=== PATIENT | female | born 1985 | race Caucasian/White ===

== ENCOUNTER 2017-01-28 01:56 | Emergency (ER) | payer BC, OTHER ==
[~2017-01-28] VITALS: Ht 154.9 cm; Wt 63.5 kg
[2017-01-28 02:08] VITALS: BP_SYST 94
--- NOTE | 2017-01-28 02:18 | NUR ---
Placed in room 03 . To gown for exam. Side rails up. Report given to YEN Lancaster.
--- NOTE | 2017-01-28 02:20 | NUR ---
Pt stated that she cut her hand on a broken beer bottle when cleaning. Small 4 cm on R posterior palm. Bleeding controlled. Will continue to monitor.
--- NOTE | 2017-01-28 02:35 | NUR ---
ER Dr. Laguna at bedside examining patient.
[2017-01-28] MEDS ORDERED: LIDOCAINE 1% 10 MG/ML, 20 ML MDV IJ ONE (02:45)
[2017-01-28] MEDS ORDERED: BACITRACIN 1 GM OINT TP ONE (02:45)
[2017-01-28] MEDS ORDERED: DIPH-TET-PERTUS Vaccine 0.5 ML VIAL (ADACEL) IM ONE (02:45)
[2017-01-28] MEDS ORDERED: fentaNYL CITRATE/PF 100 MCG/2 ML AMP IM ONE (04:00)
[2017-01-28 04:08] VITALS: BP_SYST 108
--- NOTE | 2017-01-28 04:08 | NUR ---
Patient given written and verbal discharge instructions and verbalizes understanding. ER MD discussed with patient the results and treatment provided. Patient in stable condition. ID arm band removed. Rx of Bactrim and Motrin given. Patient educated on pain management and to follow up with PMD. Pain Scale 0/10. Opportunity for questions provided and answered. No adverse reactions noted.
== END 2017-01-28 04:08 | disposition home or self-care (01) ==
LOC: SED 01:56
DX: S61.411A Laceration without foreign body of right hand, initial encounter (principal); X58.XXXA Exposure to other specified factors, initial encounter; Y93.89 Activity, other specified; Y92.89 Other specified places as the place of occurrence of the external cause; Y99.8 Other external cause status
CPT/HCPCS: 12001; 90471; 90715; 96372; 99284; J2001; J3010

== ENCOUNTER 2019-04-14 02:50 | Emergency (ER) | payer BC, OTHER ==
[~2019-04-14] VITALS: Ht 154.9 cm; Wt 63.5 kg
[2019-04-14 03:00] VITALS: BP_SYST 119
[2019-04-14] MEDS ORDERED: HYDROcodone/ACETAMIN 7.5-325 MG TAB PO ONE (03:15)
[2019-04-14] MEDS ORDERED: KETOROLAC TROMETHAMINE 60 MG/2 ML VIAL IM ONE (03:45)
[2019-04-14] MEDS ORDERED: HYDROcodone/ACETAMIN 7.5-325 MG TAB ONE (03:59)
[2019-04-14 04:03] VITALS: BP_SYST 119
== END 2019-04-14 04:03 | disposition home or self-care (01) ==
LOC: SED 02:50
DX: S63.601A Unspecified sprain of right thumb, initial encounter (principal); S60.221A Contusion of right hand, initial encounter; W18.39XA Other fall on same level, initial encounter; Y93.89 Activity, other specified; Y92.89 Other specified places as the place of occurrence of the external cause; Y99.8 Other external cause status
CPT/HCPCS: 73130; 81025; 96372; 99283; J1885